=== PATIENT | female | born 1950 | race Caucasian/White ===

== ENCOUNTER 2019-10-16 11:32 | Emergency (ER) | payer MEDICARE ==
--- NOTE | 2019-10-16 12:13 | UC ---
Nausea/Vomiting/Diarrhea HPI - HPI Summary HPI Summary: Patient is a 69-year-old female presenting with for complaints of nausea , vomiting, epigastric pain for the past week. Patient states that she has chronic abdominal pain caused by shingles which occurred approximately 4.5 years ago. Patient states that she began taking 6 200 mg tablets of ibuprofen approximately every 4-6 hours for the past 6 years. Patient states she has done this "without any side effects" but last week when she began to have abdominal pain "different than her shingles pain," she thought "maybe it could be caused by the aleve she takes." Patient states her abdominal occurs when she eats and describes it as "almost burning sensation." Denies radiating pain. Notes nausea intermittently as well. Notes 2 episodes of vomiting in the last week, the last time being last night after eating a boiled potato. Denies h/o of GERD. Denies changes in BMs. Denies blood in the stool or vomit. Denies black , tarry stools. Denies bloating. Patient states that she stopped taking the ibuprofen ~1 week ago when symptoms began and that she has "noticed some improvement." States she is now taking tylenol extra strength but it does not help her shingles pain much. Denies fever and chills. Denies current pain or nausea. She does note decreased appetite. Patient also notes she has "white coat hypertension." Denies h/o htn, diabetes, GI disorders. - History of Current Complaint Stated Complaint: NAUSEA VOMITING Hx Obtained From: Patient - Allergies/Home Medications Allergies/Adverse Reactions: Allergies Allergy/AdvReac Type Severity Reaction Status Date / Time Sulfa (Sulfonamide Allergy Rash Verified 10/16/19 12:27 Antibiotics) PMH/Surg Hx/FS Hx/Imm Hx Respiratory History: Pulmonary Embolism - Surgical History Surgical History: None - Family History Known Family History: Positive: Non-Contributory - Social History Alcohol Use: None Alcohol Amount: 1 glass wine Substance Use Type: None Smoking Status (MU): Former Smoker Type: Cigarettes Amount Used/How Often: 1 year, not very many cigarettes per day Have You Smoked in the Last Year: No When Did the Patient Quit Smoking/Using Tobacco: "MANY MANY YEARS AGO" - Immunization History Most Recent Influenza Vaccination: none Most Recent Tetanus Shot: more than 10 yrs ago Most Recent Pneumonia Vaccination: none Review of Systems All Other Systems Reviewed And Are Negative: Yes Constitutional: Positive: Negative. Negative: Fever, Chills ENT: Positive: Negative Respiratory: Positive: Negative. Negative: Cough Cardiovascular: Positive: Negative. Negative: Chest Pain Gastrointestinal: Positive: Abdominal Pain - epigastric pain with meals, Vomiting - x2 over the last week, Nausea - intermittent. Negative: Diarrhea Genitourinary: Positive: Negative Motor: Positive: Negative Musculoskeletal: Positive: Negative Neurological: Positive: Negative Physical Exam Triage Information Reviewed: Yes Appearance: Well-Appearing, No Pain Distress, Well-Nourished, Obese Vital Signs: Vital Signs (72 hours) 10/16/19 10/16/19 12:16 13:07 Temperature 95.7 F Pulse Rate 108 Respiratory 18 Rate Blood Pressure 200/90 162/64 (mmHg) O2 Sat by Pulse 99 Oximetry Vital Signs Reviewed: Yes Eyes: Positive: Conjunctiva Clear ENT: Positive: Hearing grossly normal Neck exam: Normal Neck: Positive: Supple Respiratory Exam: Normal Respiratory: Positive: Lungs clear, Normal breath sounds, No respiratory distress, No accessory muscle use. Negative: Crackles, Rhonchi, Stridor, Wheezing Cardiovascular Exam: Normal Cardiovascular: Positive: RRR, No Murmur. Negative: Tachycardia Abdominal Exam: Normal Abdomen Description: Positive: No Organomegaly, Soft. Negative: Nontender - mild epigastric tenderness to palpation, CVA Tenderness (R), CVA Tenderness (L) , Distended, Guarding, McBurney's Point Tenderness Bowel Sounds: Positive: Present - BS x4 Neurological: Positive: Alert Psychological: Positive: Age Appropriate Behavior Skin Exam: Normal - no erythema or ecchymosis Naus/Vom/Diarrhea Course/Dx - Course Course Of Treatment: Discussed possible causes of epigastric pain, including ulcer. Instructed patient to discontinue use of NSAIDs and to begin antacid and take zofran for nausea. Instrucyed to increase fluids and follow bland diet. Instructed patient to follow up with PCP and GI referral as soon as possible for further evaluation of symptoms. Educated on s/s warranting need for immediate treatment and instructed to go to ED if any occur. Patient BP elevated, but she continued to note "how nervous doctors make her" and that she "knows she has white coat hypertension." Patient well-appearing and in no pain distress throughout visit and upon departure. - Differential Dx/Diagnosis Differential Diagnoses - Female: Gerd, Gastroenteritis (Viral), Peptic Ulcer Disease Provider Diagnosis: Nausea and vomiting in adult patient, Postprandial epigastric pain Condition At Discharge: Stable Discharge ED - Sign-Out/Discharge Documenting (check all that apply): Patient Departure All imaging exams completed and their final reports reviewed: No Studies - Discharge Plan Condition: Stable Disposition: HOME Prescriptions: Ondansetron ODT TAB* [Zofran 4 MG Odt TAB*] 4 mg PO Q8H PRN #15 tab.odt PRN Reason: Nausea/Vomiting Patient Education Materials: Acute Nausea and Vomiting (ED), Acute Abdominal Pain (ED) Referrals: [facility] [Outside] [facility] [Outside] Foreign Reyes DO [Doctor of Osteopathy] - As Soon As Possible Additional Instructions: As discussed, take the zofran as prescribed for nausea and vomiting. You should also take an over the counter antacid, such as Nexium, to help reduce symptoms. You should discontinue use of NSAIDs until you receive further evaluation. Get plenty of rest and increase your fluid intake. Eat a bland diet, such as bread, bananas, and rice while symptoms are present. Follow up with your primary care provider or the referral listed below for further evaluation of your chronic shingles pain. Follow up with the reptile farmer listed below as soon as possible for further evaluation of your abdominal pain. Go to the emergency room if you develop fever, severe abdominal pain, blood in the stool or vomit, excessive vomiting, or are unable to keep fluids down. - Billing Disposition and Condition Condition: STABLE Disposition: Home
[2019-10-16 13:08] VITALS: BP 162/64
== END 2019-10-16 13:26 | disposition home or self-care (01) ==
LOC: UCEAST 11:32
DX: R11.2 Nausea with vomiting, unspecified (principal); R10.13 Epigastric pain; Z87.891 Personal history of nicotine dependence; Z86.711 Personal history of pulmonary embolism; Z88.2 Allergy status to sulfonamides
CPT/HCPCS: 99212; G0463